=== PATIENT | female | born 1995 | race Caucasian/White ===

== ENCOUNTER 2021-01-31 11:47 | Emergency (ER) | payer BC, SELFPAY ==
[2021-01-31] VITALS (8 sets, daily range): BP systolic 117–125; BP diastolic 63–87; PULSE 85–116; RESP 14–20; O2SAT 99–100
--- NOTE | ~2021-01-31 | XR_ITS ---
EXAMINATION: XR chest 2V DATE: 01/31/2021 13:28 INDICATION: Intermittent chest pain TECHNIQUE: PA and lateral views of the chest are obtained. COMPARISON: None available FINDINGS: The lungs are free of acute opacities. There is no pleural effusion or pneumothorax. The ca rdiomediastinal silhouette is normal. The visualized bones and soft tissues are unremarkable. IMPRESSION: 1. No acute cardiopulmonary abnormality. Reviewed, dictated and finalized at location A.
--- NOTE | ~2021-01-31 | US_ITS ---
EXAMINATION: US venous doppler LE RT DATE: 01/31/2021 12:47 INDICATION: Right lower limb pain TECHNIQUE: Rizvi scale images without and with compression and Doppler images of the right lower extre mity veins were obtained. COMPARISON: None FINDINGS: The right common femoral vein, profunda femoral vein, femoral vein, popliteal vein, peronea l trunk, posterior tibial veins, and greater saphenous vein are patent. IMPRESSION: 1. Patent right lower extremity veins. No evidence of deep venous thrombosis. Reviewed, dictated and finalized at location A.
--- NOTE | ~2021-01-31 | NM_ITS ---
EXAMINATION: NM pulmonary perfusion DATE: 01/31/2021 14:34 INDICATION: Chest pain TECHNIQUE: 4.2 mCi Tc-99m MAA by intravenous route. Scintigraphic images of the chest were obtained. COMPARISON: Chest radiograph dated 01/31/2021 FINDINGS: There is relatively homogeneous perfusion throughout the lungs. No discrete perfusion defects identi fied. IMPRESSION: 1. Low probability for pulmonary embolism. Reviewed, dictated and finalized at location A.
--- NOTE | 2021-01-31 11:57 | ECG_ITS ---
Measurements Intervals [place] Rate: 106 P: 33 ME: 125 QRS: 16 QRSD: 86 T: 0 QT: 315 QTc: 418 Interpretive Statements SINUS TACHYCARDIA MINIMAL Q WAVES- INFERIOR LEAEDS BORDERLINE T WAVE ABNORMALITY- INFERIOR LEADS BASELINE ARTIFACT- I, II, III, AVR, AVL, AVF, V1-V6 ABNORMAL ECG Electronically Signed On 01-31-2021 12:32:16 CDT by Jesus Ruff D.O.
[2021-01-31 12:18] LABS: Basophils Percent Auto 0.1 % (0.2-1.2); Eosinophils Absolute Auto 0.1 K/mm3 (0-0.3); Eosinophils Percent Auto 0.9 % (0-4.4); Hematocrit 34.8 % (37.0-47.0); Hemoglobin 11.8 g/dL (12.0-15.0); Immature Granulocyte Absolute 0.02 K/mm3 (0.00-0.031); Immature Granulocyte Percent A 0.3 % (0-0.5); Lymphocytes Absolute Auto 1.42 K/mm3 (0.9-3.2); Lymphocytes Percent Auto 19.1 % (18.3-44.2); Mean Corpuscular HGB Conc 33.9 g/dl (32-36); Mean Corpuscular Hemoglobin 30.1 pg (26-34); Mean Corpuscular Volume 88.8 fl (80-100); Mean Platelet Volume 10.6 fl (7.4-10.4); Monocytes Absolute Auto 0.4 K/mm3 (0.1-0.6); Monocytes Percent Auto 5.2 % (2.6-8.5); Neutrophils Absolute Auto 5.5 K/mm3 (1.3-6.7); Neutrophils Percent Auto 74.4 % (45.5-73.1); Platelet Count Result 169 k/mm3 (150-375); Red Blood Count 3.92 M/mm3 (4.2-5.4); Red Cell Distribution Width 13.2 % (11.5-14.5); White Blood Count 7.4 K/mm3 (4.5-10.0)
[2021-01-31 12:26] LABS: INR 0.9; Prothrombin Time 12.1 Seconds (11.1-14.7)
[2021-01-31 12:27] LABS: Anion Gap 8 mmol/L (8-16); Blood Urea Nitrogen 10 mg/dL (7-17); Calcium 9.2 mg/dL (8.4-10.2); Carbon Dioxide 21 mmol/L (22-30); Chloride 103 mmol/L (98-107); Estimated CRCL calculation 169 ml/min; Estimated Glomerular Filt Rate > 60; Glucose 94 mg/dL (65-110); Partial Thromboplastin Time 35.1 SECONDS (22.3-36.8); Potassium 3.6 mmol/L (3.4-5.0); Sodium 132 mmol/L (137-145)
[2021-01-31 12:39] LABS: Troponin I < 0.012 ng/mL (0.000-0.034)
--- NOTE | 2021-01-31 12:42 | ED.CHESTPAIN ---
HPI - Chest Pain General Chief Complaint: Chest Pain Stated Complaint: chest pain for a couple of days, Time Seen by Provider: 01/31/21 12:02 Source: patient and RN notes reviewed Mode of arrival: ambulatory Limitations: no limitations History of Present Illness HPI narrative: This is a 25 year old female with history of antiphospholipid syndrome who presents for evaluation of intermittent chest pain. Patient states since yesterday she has had intermittent chest pain. She states her pain seems to be located in different areas. She states last night her pain was located left chest and it was nonradiating. She states her pain lasted 2 hours. Today she reports having midsternal chest pain that lasted 15 minutes. She denies any exacerbating factors. She denies associated cough, fever, shortness of breath, dizziness. She also reports intermittent right lower lateral leg pain but no swelling. She takes aspirin and Lovenox but she is worried about blood clot. Related Data Allergies Allergy/AdvReac Type Severity Reaction Status Date / Time No Known Allergies Allergy Verified 01/31/21 12:26 Review of Systems Review of Systems: All systems reviewed & are unremarkable except as noted in HPI and below PMFSH Past Medical History Medical History (Updated 02/01/21 @ 00:00 by Ashwin Del Angel) Antiphospholipid antibody syndrome Surgical History Surgical History (Updated 01/31/21 @ 15:43 by Fiona Madera MD) No pertinent past surgical history Social History Social History (Updated 01/31/21 @ 15:44 by Fiona Madera MD) Smoking status: Never smoker Exam Const: General: healthy appearing, no acute distress and alert Eyes: EOM: EOMs intact bilaterally Chest: Chest palpation & inspection: normal inspection of the chest Resp: Effort & Inspection: normal respiratory effort and no retractions Auscultation: clear to auscultation bilaterally Cardio: Rate: regular rate Rhythm: regular rhythm Heart sounds: no murmurs GI: GI Palp: Yes Soft to palpation, No Tenderness to palpation present (GI) and No Guarding due to palpation present (GI) Auscultation: normal bowel sounds Skin: General skin exam: normal color Neuro: General: patient oriented x3, moves all extremities and CN's II-XI intact bilaterally Psych: Mental Status: mental status grossly normal Affect: normal affect Course Reevaluation(s) Reevaluation #1: PAtient presented with atypical pain. doppler negative and VQ scan is negative. I spoke with DR. Kilgore about ED course and made aware of evaluation and plan for discharge home Date: 01/31/21 Time: 15:44 Vital Signs Vital signs: Vital Signs Pulse Rate 106 H 01/31/21 11:54 Respiratory Rate 14 01/31/21 11:54 Blood Pressure 125/87 01/31/21 11:54 Pulse Oximetry 99 01/31/21 11:54 Pulse Rate 85 01/31/21 15:52 Respiratory Rate 20 01/31/21 15:52 Blood Pressure 117/63 01/31/21 15:52 Pulse Oximetry 100 01/31/21 15:52 MDM - Chest Pain Lab Data Attestation: I reviewed the patient's lab results. Result diagrams: 01/31/21 12:02 01/31/21 12:02 Labs: Lab Results 01/31/21 01/31/21 01/31/21 Range/Units 12:02 12:02 12:02 WBC 7.4 (4.5-10.0) K/mm3 RBC 3.92 L (4.2-5.4) M/mm3 Hgb 11.8 L (12.0-15.0) g/dL Hct 34.8 L (37.0-47.0) % MCV 88.8 (80-100) fl MCH 30.1 (26-34) pg MCHC 33.9 (32-36) g/dl RDW 13.2 (11.5-14.5) % Plt Count 169 (150-375) k/mm3 MPV 10.6 H (7.4-10.4) fl Immature Gran % (Auto) 0.3 (0-0.5) % Neut % (Auto) 74.4 H (45.5-73.1) % Lymph % (Auto) 19.1 (18.3-44.2) % [place] % (Auto) 5.2 (2.6-8.5) % Eos % (Auto) 0.9 (0-4.4) % Baso % (Auto) 0.1 L (0.2-1.2) % Lymph # (Auto) 1.42 (0.9-3.2) K/mm3 [place] # (Auto) 0.4 (0.1-0.6) K/mm3 Eos # (Auto) 0.1 (0-0.3) K/mm3 Baso # (Auto) 0.0 (0.0-0.1) K/mm3 Abs Immat Gran (auto)
[2021-01-31 15:47] LABS: Troponin I < 0.012 ng/mL (0.000-0.034)
== END 2021-01-31 15:54 | disposition home or self-care (01) ==
PROVIDERS: Emergency Medicine; Emergency Provider General Practice; PCP Obstetrics & Gynecology
DX: R07.89 Other chest pain (principal); D68.61 Antiphospholipid syndrome; R00.0 Tachycardia, unspecified; R94.31 Abnormal electrocardiogram [ECG] [EKG]; Z79.82 Long term (current) use of aspirin
CPT/HCPCS: 36415; 71046; 78580; 80048; 84484; 85025; 85610; 85730; 93005; 93971; 99284; A9540

== ENCOUNTER 2021-05-01 08:50 | Outpatient (RCR) | payer BC, SELFPAY ==
[2021-03-24 09:36] VITALS: BP 96/60; PULSE 96
[2021-03-27 08:44] VITALS: BP 106/45; PULSE 94
[2021-03-31 08:53] VITALS: BP 112/61; PULSE 89
[2021-04-03 08:42] VITALS: BP 105/65; PULSE 89
[2021-04-07 08:20] VITALS: BP 96/56; PULSE 96
[2021-04-10 08:59] VITALS: BP 104/54; PULSE 88
[2021-04-14 09:43] VITALS: BP 123/59; PULSE 102
[2021-04-17 07:55] VITALS: BP 105/55; PULSE 99
[2021-04-21 09:25] VITALS: BP 105/62; PULSE 96
[2021-04-24 08:02] VITALS: BP 103/58; PULSE 87
[2021-04-28 08:49] VITALS: BP 107/73; PULSE 98
--- NOTE | ~2021-05-01 | US_ITS ---
EXAMINATION: US OB BPP wo non-stress EXAM DATE: 04/28/2021 09:53 INDICATION: Clotting disorder. Elevated BP. 3rd trimester. TECHNIQUE: Pelvic obstetrical transabdominal sonogram was performed by a technologist. There are mu ltiple grayscale and Doppler images available for interpretation. Comparison is made to prior examina tion from 04/21/2021. FINDINGS: There is a single fetus identified in vertex presentation with a heart rate of 147 beats pe r minute. The placenta is located in the anterior position. There is no sonographic evidence of retr oplacental hemorrhage identified. The amniotic fluid index is 13.3 centimeters, which is normal. BIOPHYSICAL PROFILE (performed by the technologist) breathing (30 sec sustained breathing in 30 minutes): 2 out of 2 movement (3 gross body movements in 30 minutes): 2 out of 2 tone (one episode of wyolbfp-vlbvixcuj-iwmcacq limb movement): 2 out of 2 Amniotic fluid pocket (2 cm): 2 out of 2 Total score: 8 out of 8 IMPRESSION: 1. Single fetus with heart rate of 147 bpm. 2. Normal biophysical profile score of 8 out of 8. 3. Normal CELESTE 13.3 cm. Reviewed, dictated and finalized at location A.
--- NOTE | ~2021-05-01 | US_ITS ---
EXAMINATION: US OB BPP wo non-stress DATE: 04/14/2021 09:49 CDT INDICATION: Increased BMI TECHNIQUE: Real-time transabdominal obstetric ultrasound. FINDINGS: Comparison to 04/07/2011 There is a single living fetus in vertex presentation. The placenta is anterior without placenta pre via. cardiac activity and movement is noted with a heart rate of 132 beats per minute. Biophysical profile: breathin of 2 movement: 2 of 2 tone: 2 of 2 Amniotic flud pocket: 2 of 2 Total score: 8 of 8 IMPRESSION: 1. Single living intrauterine in vertex presentation. 2: Total biophysical profile score of 8/8. Reviewed, dictated and finalized at location B.
--- NOTE | ~2021-05-01 | US_ITS ---
EXAMINATION: US OB follow up w BPP DATE: 04/21/2021 09:25 INDICATION: Clotting disorder. Third trimester. TECHNIQUE: Real-time pelvic ultrasound was performed. COMPARISON: Ultrasound 04/14/2021, 03/24/2021 FINDINGS: There is a single living fetus in vertex presentation. The placenta is anterior. heart rate is 142 beats per minute (bpm). The amniotic fluid index is 13.8 cm, which is normal. The following biometric data were obtained: Biparietal diameter (BPD): 8.8 cm; head circumference (HC): 32.5 cm; abdominal circumference (AC): 33 .2 cm; femur length (FL): 6.9 cm. These measurements are concordant. Estimated weight is 2955 g +/- 443 g, which correlates with 55th percentile when 05/16/21 is us ed as estimated date of delivery. As single measurements, these parameters are each equal to the following estimated gestational ages: BPD: 35 weeks 5 days. HC: 36 weeks 5 days. AC: 37 weeks 1 days. FL: 35 weeks 3 days. estimated gestational age based solely on measurements from this exam is 36 weeks 2 days +/- 2 weeks 4 days. Biophysical profile performed by the technologist: breathing (30 sec sustained breathing in 30 minutes): 2 out of 2 movement (3 gross body movements in 30 minutes): 2 out of 2 tone (one episode of lnftzns-ulwfiwlfa-jmvtukt limb movement): 2 out of 2 Amniotic fluid pocket (2 cm): 2 out of 2 Total score: 8 out of 8 IMPRESSION: 1. Single living fetus in vertex presentation. 2. Estimated weight is 2955 g +/- 443 g, which correlates with 55th percentile when 05/16/21 i s used as estimated date of delivery. 3. Biophysical profile 8 out of 8. Reviewed, dictated and finalized at location A. IMPRESSION: 1. Single living fetus in vertex presentation. 2. Estimated weight is 2955 g +/- 443 g, which correlates with 55th perc entile when 05/16/21 is used as estimated date of delivery. 3. Biophysical profile 8 out of 8.
--- NOTE | ~2021-05-01 | US_ITS ---
EXAMINATION: US OB BPP wo non-stress EXAM DATE: 03/24/2021 09:49 INDICATION: Antiphospholipid syndrome. 3rd trimester. TECHNIQUE: Pelvic obstetrical transabdominal sonogram was performed by a technologist. There are mu ltiple grayscale and Doppler images available for interpretation. There are no earlier studies of th is gestation for comparison. FINDINGS: There is a single fetus identified in vertex presentation with a heart rate of 154 beats pe r minute. The placenta is located in the anterior position. There is no sonographic evidence of retr oplacental hemorrhage identified. BIOPHYSICAL PROFILE (performed by the technologist) breathing (30 sec sustained breathing in 30 minutes): 2 out of 2 movement (3 gross body movements in 30 minutes): 2 out of 2 tone (one episode of rfndwsj-cwqnubquo-kypstmy limb movement): 2 out of 2 Amniotic fluid pocket (2 cm): 2 out of 2 Total score: 8 out of 8 IMPRESSION: 1. Single fetus with heart rate of 154 bpm. 2. Normal biophysical profile score of 8 out of 8. Reviewed, dictated and finalized at location A.
--- NOTE | ~2021-05-01 | US_ITS ---
EXAMINATION: US OB follow up w BPP DATE: 03/31/2021 09:20 INDICATION: High BMI. Assess growth during third trimester . TECHNIQUE: Real-time pelvic ultrasound was performed. The interpreting radiologist was not present fo r the study. COMPARISON: None. FINDINGS: There is a single living fetus in vertex presentation. The placenta is anterior. heart rate is 155 beats per minute (bpm). Normal amniotic fluid index of 14.4 cm (5th%-95%: 8.3-24.5 cm at 33 week s estimated gestational age). The following biometric data were obtained: BPD: 8.3 cm -> 33 weeks 1 days Head circumference: 30.9 cm -> 34 weeks 3 days Abdominal circumference: 31.3 cm -> 35 weeks 2 days Femur length: 6.5 cm -> 33 weeks 3 days These measurements are concordant. Head circumference to abdominal circumference ratio: 0.98 (normal range 0.94-1.11). Estimated weight: 2437 g (+/-) 365 g, 5 lbs 6 oz (+/-) 13 oz Biophysical profile performed by the technologist: breathing (30 sec sustained breathing in 30 minutes): 2 out of 2 movement (3 gross body movements in 30 minutes: 2 out of 2 tone (one episode of lqqchik-pyufzzjdd-sjoekur limb movement): 2 out of 2 Amniotic fluid pocket (2 cm): 2 out of 2 Total score: 8 out of 8 IMPRESSION: 1. Single living fetus in vertex presentation. 2. Normal amniotic fluid index of 14.4 cm. 3. Biophysical profile 8 out of 8. 4. Estimated weight is 74th percentile by Hadlock criteria when 05/16/2021 is used as the estim ated date of delivery (GRISELDA). Please correlate with clinical information or earlier ultrasounds for mo st accurate GRISELDA. Reviewed, dictated and finalized at location B. IMPRESSION: 1. Single living fetus in vertex presentation. 2. Normal amniotic fluid index of 14.4 cm. 3. Biophysical profile 8 out of 8. 4. Estimated weight is 74th percentile by Hadlock criteria when 1 is used as the estimated date of delivery (GRISELDA). Please correlate with clinic al information or earlier ultrasounds for most accurate GRISELDA.
--- NOTE | ~2021-05-01 | US_ITS ---
EXAMINATION: US OB BPP wo non-stress EXAM DATE: 04/07/2021 08:59 INDICATION: Elevated BMI. 3rd trimester. TECHNIQUE: Pelvic obstetrical breech sonogram was performed by a technologist. There are multiple g rayscale and Doppler images available for interpretation. Comparison is made to prior examination [facility] 03/31/2021. FINDINGS: There is a single fetus identified in breech presentation with a heart rate of 161 beats pe r minute. The placenta is located in the anterior position. There is no sonographic evidence of retr oplacental hemorrhage identified. BIOPHYSICAL PROFILE (performed by the technologist) breathing (30 sec sustained breathing in 30 minutes): 2 out of 2 movement (3 gross body movements in 30 minutes): 2 out of 2 tone (one episode of hiehyvd-fdrjkwrfn-fvxhquz limb movement): 2 out of 2 Amniotic fluid pocket (2 cm): 2 out of 2 Total score: 8 out of 8 IMPRESSION: 1. Single fetus with heart rate of 161 bpm. 2. Change in position, now breech. 3. Normal biophysical profile score of 8 out of 8. Reviewed, dictated and finalized at location A.
[2021-05-01 09:37] VITALS: BP 101/47; PULSE 106
--- NOTE | 2021-05-01 09:56 | PC.NURSE ---
Dr. Kilgore informed SVE - external os is a loose 1cm that narrows to closed internally, 50%, soft, and posterior. Pt was given phone to discuss plan of care with physician. Decision was made to continue with plan for elective primary C/S tomorrow at 1330.
== END 2021-05-12 10:33 | disposition home or self-care (01) ==
LOC: ANHOBOP 08:50
PROVIDERS: Visit Provider Obstetrics & Gynecology
DX: O99.113 Other diseases of the blood and blood-forming organs and certain disorders involving the immune mechanism complicating pregnancy, third trimester (principal); D68.61 Antiphospholipid syndrome; Z3A.32 32 weeks gestation of pregnancy; Z3A.33 33 weeks gestation of pregnancy; Z3A.34 34 weeks gestation of pregnancy; Z3A.35 35 weeks gestation of pregnancy; Z3A.36 36 weeks gestation of pregnancy; Z3A.37 37 weeks gestation of pregnancy
CPT/HCPCS: 59025; 76816; 76819

== ENCOUNTER 2021-05-01 10:10 | Outpatient (CLI) | payer BC, SELFPAY ==
[2021-05-01 10:42] LABS: Basophils Percent Auto 0.4 % (0.2-1.2); Eosinophils Absolute Auto 0.1 K/mm3 (0-0.3); Eosinophils Percent Auto 1.2 % (0-4.4); Hematocrit 35.7 % (37.0-47.0); Hemoglobin 12.2 g/dL (12.0-15.0); Immature Granulocyte Absolute 0.05 K/mm3 (0.00-0.031); Immature Granulocyte Percent A 0.6 % (0-0.5); Lymphocytes Absolute Auto 1.83 K/mm3 (0.9-3.2); Lymphocytes Percent Auto 21.8 % (18.3-44.2); Mean Corpuscular HGB Conc 34.2 g/dl (32-36); Mean Corpuscular Hemoglobin 29.5 pg (26-34); Mean Corpuscular Volume 86.4 fl (80-100); Mean Platelet Volume 11.1 fl (7.4-10.4); Monocytes Absolute Auto 0.7 K/mm3 (0.1-0.6); Monocytes Percent Auto 7.8 % (2.6-8.5); Neutrophils Absolute Auto 5.7 K/mm3 (1.3-6.7); Neutrophils Percent Auto 68.2 % (45.5-73.1); Platelet Count Result 161 k/mm3 (150-375); Red Blood Count 4.13 M/mm3 (4.2-5.4); Red Cell Distribution Width 13.6 % (11.5-14.5); White Blood Count 8.4 K/mm3 (4.5-10.0)
[2021-05-01 15:19] LABS: Rapid Plasma Reagin Non-Reactive (NonReactive)
== END 2021-05-01 10:11 | disposition home or self-care (01) ==
LOC: ANHOBOP 10:14
PROVIDERS: Visit Provider Obstetrics & Gynecology
DX: O82 Encounter for cesarean delivery without indication (principal); Z3A.38 38 weeks gestation of pregnancy
CPT/HCPCS: 36415; 59025; 85025; 86592; 86850; 86900; 86901

== ENCOUNTER 2021-05-02 11:21 | Inpatient (IN) | payer BC, SELFPAY ==
[2021-05-02] VITALS (76 sets, daily range): BP systolic 59–153; BP diastolic 33–118; PULSE 65–173; RESP 18–20; TEMP 36.1–36.6; O2SAT 94–100; BMI 43.9
--- NOTE | 2021-05-02 11:29 | P.HP_ITS ---
H&P: HPI History of Present Illness Date/Time: 05/02/21 11:29 25-year-old 1 patient presents at 38 weeks gestation for primary delivery. Has a history of antiphospholipid antibody syndrome for which she has been treated for Lovenox 40mg mg b.i.d. and 81 grain aspirin daily. She has had good growth and testing has been normal. The vault is discussed mode of delivery and patient does not desire attempted vaginal delivery at this point. We have discussed the increased risk of bleeding and infection and again she strongly desires to proceed with primary delivery. She has seen [facility] for maternal medicine consultation and those records are on the chart as well. 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 Therefore was initiated on a the Lovenox early in this gestation. Chief Complaint: Review of Systems Review of Systems: All systems reviewed & are unremarkable except as noted in HPI and below PMFSH Past Medical History Medical History Antiphospholipid antibody syndrome Surgical History Surgical History No pertinent past surgical history Family History Family History Father Diabetes mellitus Sibling Cystic fibrosis Social History Social History Smoking status: Never smoker Substance use: never Spiritual care concerns: No Meds Home Medications and Allergies Home Medications Medication Instructions Recorded Confirmed Type enoxaparin 40 mg SUBCUT DAILY 04/03/21 05/01/21 History PNV cmb#95-ferrous fumarate-FA 1 tablet PO DAILY 04/21/21 05/01/21 History [] folic acid 1 mg PO DAILY 04/21/21 05/01/21 History Allergies Allergy/AdvReac Type Severity Reaction Status Date / Time No Known Allergies Allergy Verified 01/31/21 12:26 Exam Const: General: cooperative and healthy appearing Resp: Effort & Inspection: normal respiratory effort Auscultation: clear to auscultation bilaterally Cardio: Rate: regular rate Rhythm: regular rhythm GI: Auscultation: normal bowel sounds : Bimanual exam- vagina & uterus: enlarged ( Fundal height 41cm heart tones 140) Assessment and Plan Assessment and plan (1) 38 weeks gestation of : Code(s): Z3A.38 - 38 weeks gestation of Status: Acute (2) Antiphospholipid antibody syndrome complicating : Code(s): O99.119 - Other diseases of the blood and blood-forming organs and certain disorders involving the immune mechanism complicating , unspecified trimester; D68.61 - Antiphospholipid syndrome Status: Acute (3) Delivery by elective section: Code(s): O82 - Encounter for delivery without indication Status: Acute Additional Plan 1. Proceed with primary low-transverse section 2. Patient has stopped her Lovenox yesterday and this will be re-initiated tomorrow morning at40mg b.i.d. as previously. 3. routine postoperative care and management.
--- NOTE | 2021-05-02 11:34 | WPDHPUPDATE1 ---
History and Physical Update Update Date/Time: 05/02/21 11:34 History and Physical has been reviewed, including an updated exam of the patient. There are NO changes in the patient's condition. Risks, benefits, and alternatives have been discussed and questions answered. Patient agrees to proceed with procedure.
--- NOTE | 2021-05-02 12:01 | LDADM ---
This patient, Mimi Bueno, was admitted to Labor/Delivery/Recovery 118 on 05/02/21 at 11:21. Plans for labor, pain management and were discussed with patient. Patient/family oriented to hospital policies and general routines including ID bracelet, bed and alarms, visiting hours, pain management, procedures, bathroom and other care routines, personal items, smoking policy, room service/diet and guest tray routines, infant security routines, and visiting hours. Patient/Family are encouraged to report perceived risks to care and to ask questions if they do not understand what they are told or what they should do. See OBIX for further documentation.
--- NOTE | 2021-05-02 12:10 | LDADM ---
This patient, Mimi Bueno, was admitted to Labor/Delivery/Recovery 118 on 05/02/21 at 11:21. Plans for surgery/ and pain management were discussed with patient. Patient/family oriented to hospital policies and general routines including ID bracelet, bed and alarms, visiting hours, pain management, procedures, bathroom and other care routines, personal items, smoking policy, room service/diet and guest tray routines, infant security routines, and visiting hours. Patient/Family are encouraged to report perceived risks to care and to ask questions if they do not understand what they are told or what they should do.
[2021-05-02] MEDS: LACTATED RINGERS 1,000 ML 125 ML IV CONT (12:18)
[2021-05-02] MEDS: LACTATED RINGERS 1,000 ML 999 ML IV CONT (14:16)
--- NOTE | 2021-05-02 14:22 | PN_ITS ---
This report was moved to the correct visit, [id number] on 05/08/21. Original report was signed by Kirill Mitchell MD on 05/02/21 0570. Anes - Initial Pre Proc Eval Procedure: Operation Date: 05/02/21 13:30 Proposed Procedures p Primary Section - Andreas Kilgore MD Date/Time: 05/02/21 14:22 Surgeon: Suma Avalos MD Pre Op Diagnosis: breech, Preadmit Patient Data Age: 25 Gender: F Height: Weight: Allergies Allergy/AdvReac Type Severity Reaction Status Date / Time No Known Allergies Allergy Verified 01/31/21 12:26 Home Medications Medication Instructions Recorded Confirmed Type enoxaparin 40 mg SUBCUT DAILY 04/03/21 05/02/21 History PNV cmb#95-ferrous fumarate-FA 1 tablet PO DAILY 04/21/21 05/02/21 History [] folic acid 1 mg PO DAILY 04/21/21 05/02/21 History Patient hx anesthesia problems: none Family hx anesthesia problems: none Results Review: All pre-operative results and documents have been reviewed as part of the pre-operative evaluation. [facility] Past Medical History Medical History Antiphospholipid antibody syndrome Surgical History Surgical History No pertinent past surgical history Family History Family History Father Diabetes mellitus Sibling Cystic fibrosis Social History Social History Smoking status: Never smoker Substance use: never Spiritual care concerns: No Anes - Eval Final PreProcedure Day of Procedure 05/02/21 14:22 Patient weight: morbidly obese Heart: regular rate and rhythm Lungs: clear to auscultation Airway: Mallampati scale class II Neurological: alert and oriented Last oral intake: >/= 8 hours ASA classification: III Emergent: no Anesthetic plan: proceed Anesthesia type and monitoring: regional spinal and standard monitoring Results Review: All pre-operative results and documents have been reviewed as part of the pre-operative evaluation. Informed Consent: The patient's anesthetic plan and its attendant risks and benefits were discussed with the patient/family/POA. Questions were solicited and answers provided to the satisfaction of the patient/family/POA. This dictation may have been done utilizing a voice recognition system. Attempts have been made to correct errors. However, there may be uncorrected grammatical, spelling, and recognition errors present. Report Initialized date/time: Kirill Mitchell MD 05/02/211421 Electronically signed by: Kirill Mitchell MD 05/02/211421 [facility]
--- NOTE | 2021-05-02 14:22 | PN_ITS ---
This report was moved to correct visit, [id number], The original report was signed by Dr. Kirill Mitchell 05/02/2021 1422 Anes - Initial Pre Proc Eval Procedure: Operation Date: 05/02/21 13:30 Proposed Procedures p Primary Section - Andreas Kilgore MD Date/Time: 05/02/21 14:22 Surgeon: Suma Avalos MD Pre Op Diagnosis: breech, Preadmit Patient Data Age: 25 Gender: F Height: Weight: Allergies Allergy/AdvReac Type Severity Reaction Status Date/ Time No Known Allergies Allergy Verified 01/31/21 12 :26 Home Medications Medication Instructions Recorded Confirmed Type enoxaparin 40 mg SUBCUT DAILY 04/03/21 05/02/21 History PNV cmb#95-ferrous fumarate-FA [] 1 tablet PO DAILY 04/21/21 05/02/21 History folic acid 1 mg PO DAILY 04/21/21 05/02/21 History Patient hx anesthesia problems: none Family hx anesthesia problems: none Results Review: All pre-operative results and documents have been reviewed as part of the pre-operative evaluation. [facility] Past Medical History Medical History Antiphospholipid antibody syndrome Surgical History Surgical History No pertinent past surgical history Family History Family History Father Diabetes mellitus Sibling Cystic fibrosis Social History Social History Smoking status: Never smoker Substance use: never Spiritual care concerns: No Anes - Eval Final PreProcedure Day of Procedure 05/02/21 14:22 Patient weight: morbidly obese Heart: regular rate and rhythm Lungs: clear to auscuItat ion Airway: Mallampati scale class II Neurological: alert and oriented Last oral intake: >/= 8 hours ASA classification: III Emergent: no Anesthetic plan: proceed Anesthesia type and monitoring: regional spinal and standard monitoring Results Review: All pre-operative results and documents have been reviewed as part of the pre-operative evaluation. Informed Consent: The patient's anesthetic plan and its attendant risks and benefits were discussed with the patient/family/POA. Questions were solicited and answers provided to the satisfaction of the patient/family/POA. This dictation may have been done utilizing a voice recognition system. Attempts have been made to correct errors. However, there may be uncorrected grammatical, spelling, and recognition errors present. Report Initialized date/time: Kirill Mitchell MD 05/02/211421 Electronically signed by: Kirill Mitchell MD 05/02/211421 [facility]
[2021-05-02] MEDS: ceFAZolin 3 GM/D5W 100 ML 100 ML IVPB (14:39)
--- NOTE | 2021-05-02 15:15 | PC.NURSE ---
Pt and MD aware of delay in scheduled C/S due to other cases.
--- NOTE | 2021-05-02 15:41 | SUR.PHASEI ---
350 ml remains in 1000 LR with 40 units Pitocin.
--- NOTE | 2021-05-02 15:41 | SUR.PHASEI ---
350 ml remains from 1000 ml LR with 40 units Pitocin.
--- NOTE | 2021-05-02 15:41 | PM.OBPRVD ---
OB - Delivery Note Procedure Route of delivery: Specimen: Yes Quantitative Blood Loss (ml): 750 Anesthesia type: Epidural Disposition: floor Narrative: Patient prepped and draped in the usual manner for this procedure. Pfannenstiel incision was made and carried down to the fascia. This incision was extended bilaterally the length of the skin incisional in and superiorly and inferiorly dissected away from the rectus muscles. Peritoneum was entered the bladder flap was developed. Uterus scored and vertex was delivered after the lower segment was incised with clear fluid noted in the rest of baby was delivered without difficulty. Cord clamped cut uterus was exteriorized and membranes and clots were removed from the uterine cavity. Incision was approximated 0 Monocryl in a running interlocking manner with good approximation hemostasis noted. There was a small amount of oozing from the right angle which was readily rendered hemostatic using a [id number] suture in this area. Uterus was returned to the abdomen gutters were cleared of serosanguineous fluid and clots and uterine incision was again inspected specifically the right lower area and was hemostatic. Fascia was approximated using 0 Vicryl from left angle to midline in the right angle to midline with good approximation noted. Subcutaneous tissues approximated 0 plain suture and quinn were then used to approximate the skin edges. Patient are procedure well 0 sent to recovery room in stable condition. Baby Weeks of gestation at delivery: 38 Infant gender: Male Weight (pounds): 7 Weight (ounces): 7 score one minute: 9 score five minutes: 9
--- NOTE | 2021-05-02 16:31 | PC.NURSE ---
Some BP's reading low due to pt's arm being bent while .
[2021-05-02 16:46] LABS: Glucose Point of Care 84 mg/dl (65-105)
[2021-05-02] MEDS: OXYTOCIN 30 UNITS/NS 500 ML 30 UNITS/500 ML BAG 125 UNITS IV CONT (17:37)
--- NOTE | 2021-05-02 18:30 | PC.NURSE ---
Confirmed with Dr. Kilgore that pt is to take her Lovenox twice a day starting in the morning.
[2021-05-02] MEDS: KETOROLAC 30 MG/ML VIAL (*BKC) IV PUSH (19:00)
[2021-05-03] MEDS: IBUPROFEN 600 MG TABLET PO ×4 (04:20→22:22)
[2021-05-03] MEDS: HYDROcodone/acetaminophen (*CRX) 5-325 MG TABLET 1 TAB PO ×5 (04:20→20:05)
[2021-05-03 04:48] LABS: Basophils Percent Auto 0.3 % (0.2-1.2); Eosinophils Absolute Auto 0.1 K/mm3 (0-0.3); Eosinophils Percent Auto 0.7 % (0-4.4); Hematocrit 32.7 % (37.0-47.0); Hemoglobin 10.8 g/dL (12.0-15.0); Immature Granulocyte Absolute 0.03 K/mm3 (0.00-0.031); Immature Granulocyte Percent A 0.3 % (0-0.5); Lymphocytes Absolute Auto 1.69 K/mm3 (0.9-3.2); Lymphocytes Percent Auto 16.7 % (18.3-44.2); Mean Corpuscular Hemoglobin 29.3 pg (26-34); Mean Corpuscular Volume 88.9 fl (80-100); Mean Platelet Volume 11.1 fl (7.4-10.4); Monocytes Absolute Auto 0.7 K/mm3 (0.1-0.6); Monocytes Percent Auto 6.9 % (2.6-8.5); Neutrophils Absolute Auto 7.6 K/mm3 (1.3-6.7); Neutrophils Percent Auto 75.1 % (45.5-73.1); Platelet Count Result 145 k/mm3 (150-375); Red Blood Count 3.68 M/mm3 (4.2-5.4); Red Cell Distribution Width 13.8 % (11.5-14.5); White Blood Count 10.1 K/mm3 (4.5-10.0)
[2021-05-03 09:00] VITALS: PULSE 85; RESP 16; O2SAT 97
[2021-05-03] MEDS: DOCUSATE SODIUM 100 MG CAPSULE PO ×2 (10:18→16:40)
[2021-05-03] MEDS: MULTIVIT/MIN/PREN/FOL AC/IRON TABLET 1 TAB PO (10:18)
[2021-05-03] MEDS: ENOXAPARIN 40 MG/0.4 ML SYRINGE SUB-Q ×2 (10:20→18:12)
[2021-05-03] MEDS: SIMETHICONE 80 MG TAB.CHEW PO ×5 (10:28→22:22)
[2021-05-03 10:39] VITALS: BP 133/85; PULSE 85; RESP 16; TEMP 36.3; O2SAT 97
--- NOTE | 2021-05-03 11:18 | WPDANLDPN2 ---
Anes-Prog Note L&D Date/Time: 05/03/21 11:18 Comfortable throughout: section Neuraxial method: spinal Epidural/Spinal procedure site: clean & non-tender Neuro status: Neuro function grossly intact. Cardiovascular status: normal Respiratory status: normal Airway patency: baseline Mental status: baseline Post-Op hydration status: normal Vital Signs: Last Vital Signs Temp 97.4 F L 05/03/21 10:39 Pulse 85 05/03/21 10:39 Resp 16 05/03/21 10:39 BP 133/85 05/03/21 10:39 Pulse Ox 97 05/03/21 10:39 Pain score (VAS): 4 I/O: Intake & Output 05/02/21 05/03/21 05/03/21 23:59 07:59 15:59 Intake Total 700 Output Total 155 600 Balance -155 100 Post-procedural complaints: none Patient feedback: Patient satisfied with anesthetic care.
--- NOTE | 2021-05-03 12:00 | PM.OBPNVD ---
OB - PN: Subj Subjective Date/time seen: 05/03/21 12:00 POD 1. Pain well controlled. Out of bed earlier without issues. Diet tolerated. OB - PN: Obj Data Labs CBC & Chem 7: 05/03/21 04:27 Labs: Laboratory Results - last 24 hr 05/02/21 05/03/21 15:56 04:27 WBC 10.1 H RBC 3.68 L Hgb 10.8 L Hct 32.7 L MCV 88.9 MCH 29.3 MCHC 33.0 RDW 13.8 Plt Count 145 L MPV 11.1 H Immature Gran % (Auto) 0.3 Neut % (Auto) 75.1 H Lymph % (Auto) 16.7 L [place] % (Auto) 6.9 Eos % (Auto) 0.7 Baso % (Auto) 0.3 Lymph # (Auto) 1.69 [place] # (Auto) 0.7 H Eos # (Auto) 0.1 Baso # (Auto) 0.0 Abs Immat Gran (auto) 0.03 Absolute Neuts (auto) 7.6 H Absolute Nucleated RBC 0.0 Nucleated RBC % 0.0 POC Capillary Glucose 84 OB - PN A/P Assessment and Plan (1) care and examination: Code(s): Z39.2 - Encounter for routine follow-up Status: Acute Assessment and Plan: Increase diet/activity as tolerated. Would like to be d/c home tomorrow. Time Spent With Patient Time: Total time spent is greater than 50% in coordination of care (as documented) at patient's floor/unit and/or counseling patient: Exam Narrative: inc c/d/i
[2021-05-03 13:30] VITALS: BP 127/65; PULSE 88; RESP 16; TEMP 36.8; O2SAT 98
[2021-05-03 19:00] VITALS: BP 134/83; PULSE 95; RESP 18; TEMP 36; O2SAT 100
[2021-05-03] MEDS: HYDROcodone/acetaminophen (*CRX) 10-325 MG TABLET 1 TAB PO (22:43)
[2021-05-04] MEDS: SIMETHICONE 80 MG TAB.CHEW PO ×2 (01:30→04:35)
[2021-05-04] MEDS: HYDROcodone/acetaminophen (*CRX) 5-325 MG TABLET 1 TAB PO ×4 (01:30→12:22)
--- NOTE | 2021-05-04 01:39 | PC.NURSE ---
Daylight Savings Time For Daylight Savings Time Ending in the Fall - Clocks are moved back. For [facility], the time of change occurs at 0200 hrs. Time is taken from the seismic prospecting observer. This entry on the patient's chart recognizes the change in time reflected during documentation. Example: 2 entries for vital signs may be charted for 0200 hrs.
[2021-05-04] MEDS: IBUPROFEN 600 MG TABLET PO ×2 (04:35→10:41)
[2021-05-04 08:00] VITALS: BP 104/62; PULSE 79; RESP 18; TEMP 36.4; O2SAT 99
[2021-05-04] MEDS: MULTIVIT/MIN/PREN/FOL AC/IRON TABLET 1 TAB PO (08:24)
[2021-05-04] MEDS: DOCUSATE SODIUM 100 MG CAPSULE PO (08:24)
[2021-05-04] MEDS: ENOXAPARIN 40 MG/0.4 ML SYRINGE SUB-Q (08:24)
--- NOTE | 2021-05-04 10:05 | P.DS_ITS ---
DS: Admitting Diagnosis Discharge Date 05/04/2021 Admitting Diagnosis DS: Discharge Diagnosis Discharge Diagnosis (1) care and examination: Code(s): Z39.2 - Encounter for routine follow-up Status: Acute OB - DS: Summary OB Procedures : None OB Procedures Intrapartum: OB Procedures: : None Peripartum Data Procedures: Procedures Operation Date: 05/02/21 13:30 Actual Procedure Side Surgeon p Section Andreas Kilgore MD Time Spent with Patient Time attestation: Total time spent providing and/or coordinating discharge services: Discharge Plan Discharge Discharging Clinician: Andreas Kilgore Patient Disposition: Home, Self-Care Activity: as tolerated Diet: as tolerated Wound Care Instructions: incision open to air Discharge Instructions: quinn removed at hospital visit Patient Instructions: Antibiotic Form Stand Alone Forms: General Discharge Information Follow-up/Referrals: Andreas Kilgore MD [Physician] - 3 Weeks Discharge Medications: New hydrocodone-acetaminophen 5-325 mg Tablet 1 tablet PO Q6H Qty: 20 RF: 0 ibuprofen 600 mg Tablet 600 mg PO Q6H PRN (Reason: Cramping) Qty: 30 RF: 0 Continued folic acid 1 mg Tablet 1 mg PO DAILY RF: 0 PNV [id number] fumarate-FA [] 28 mg iron- 800 mcg Tablet 1 tablet PO DAILY RF: 0 enoxaparin 40 mg/0.4 mL syringe 40 mg subcut BID RF: 0 Date of admission: 05/02/21 11:21 Primary Care Provider: PHYSICIAN,MEDICAID COLLECTION SPECIALIST Admitting Provider: Andreas Kilgore Attending physician on admission: Andreas Kilgore Condition: Stable
--- NOTE | 2021-05-04 10:27 | PC.NURSE ---
Patient viewed the discharge video Mother & Baby Care, The First Two Weeks . Patient was given the opportunity and encouraged to ask questions. Patient verbalized understanding of information shared and has been given the mother/baby guide for home reference.
[2021-05-05 08:41] VITALS: BP 135/60; PULSE 80; RESP 20; TEMP 36.9; O2SAT 100
== END 2021-05-04 12:37 | disposition home or self-care (01) | DRG 787 ==
LOC: ANHLDR 11:24 → ANHOB2 19:10
PROVIDERS: Admitting Provider Obstetrics & Gynecology; Visit Provider Obstetrics & Gynecology
PROC: 10D00Z1 Extraction of Products of Conception, Low, Open Approach (ICD-10-PCS; CPT 59514; principal; 2021-05-02 13:30)
DX: O99.12 Other diseases of the blood and blood-forming organs and certain disorders involving the immune mechanism complicating childbirth (principal); D68.61 Antiphospholipid syndrome; Z3A.38 38 weeks gestation of pregnancy; Z37.0 Single live birth; Z79.01 Long term (current) use of anticoagulants
CPT/HCPCS: 36415; 82948; 85025; 88307; A9270; J0131; J0690; J1650; J1885; J2274; J2370; J2405; J2590; J7120